=== PATIENT | female | born 1960 | race Caucasian/White ===

== ENCOUNTER 2024-08-05 09:17 | Day surgery (SDC) | payer MEDICARE ==
[~2024-08-05 09:17] MED LIST: Sodium Chloride 0.9% 10 ML Syringe FLUSH PRN; Sodium Chloride 0.9% 10 ML Syringe FLUSH SCH
[2024-08-05] MEDS: Lactated Ringers 1,000 ML IV SCH (09:45)
[2024-08-05] MEDS ORDERED: ePHEDrine 50 MG/ML SDV ONE (10:00)
[2024-08-05] MEDS ORDERED: Midazolam 1 MG/ML 2 ML SDV ONE (10:03)
[2024-08-05] MEDS ORDERED: propofoL 500 MG/50 ML 50 ML ONE (10:03)
[2024-08-05] MEDS ORDERED: fentaNYL 100 MCG/2 ML SDV ONE (10:03)
[2024-08-05] MEDS: Acetaminophen 325 MG Tab PO ONE (10:06)
[2024-08-05] MEDS: Pregabalin 25 MG Cap PO ONE (10:07)
[2024-08-05] MEDS: oxyCODONE ER 10 MG TAB.ER PO ONE (10:07)
[2024-08-05] MEDS ORDERED: Ropivacaine 0.5% 5 MG/ML 30 ML SDV ONE (10:35)
[2024-08-05] MEDS ORDERED: Dexamethasone 4 MG/ML 5 ML MDV ONE (10:35)
[2024-08-05] MEDS ORDERED: ceFAZolin 2 GM Vial ONE (10:35)
[2024-08-05] MEDS ORDERED: Ondansetron 4 MG/2 ML SDV IVPUSH PRN (10:49)
[2024-08-05] MEDS ORDERED: HYDROmorphone 0.5 MG/0.5 ML Syringe IVPUSH PRN (10:49)
[2024-08-05] MEDS ORDERED: fentaNYL 100 MCG/2 ML SDV IVPUSH PRN (10:49)
[2024-08-05] MEDS ORDERED: Chloroprocaine 3% 30 MG/ML 20 ML SDV ONE (11:20)
[2024-08-05] MEDS ORDERED: Phenylephrine 1% 10 MG/ML SDV ONE (11:33)
[2024-08-05] MEDS ORDERED: Lactated Ringers 1,000 ML ONE (11:33)
[2024-08-05] MEDS: Morphine 8 MG, EPINEPHrine 0.3 MG, Cefuroxime 750 MG, Ketorolac 30 MG, Sodium Chloride ... PRN (12:23)
[2024-08-05] MEDS: Tranexamic Acid 1,000 MG/10 ML Vial ONE (12:28)
[2024-08-05] MEDS: VANCOmycin 1 GM SDV ONE (12:28)
[2024-08-05] MEDS: oxyCODONE 5 MG Tab PO PRN (13:57)
== END 2024-08-05 16:01 | disposition home or self-care (01) ==
LOC: JD.SDS 09:17
PROVIDERS: ATTEND Orthopaedic Surgery
DX: M17.12 Unilateral primary osteoarthritis, left knee (principal); I71.40 Abdominal aortic aneurysm, without rupture, unspecified; E78.2 Mixed hyperlipidemia; Z79.899 Other long term (current) drug therapy
CPT/HCPCS: 0055T; 27447; 64447; 64454; 73560; 97116; 97161; A9270; C1713; C1776; J0171; J0690; J0697; J1100; J1885; J2250; J2272; J2371; J2401; J2704; J2795; J3010; J7120; 01402; 64450; J3490

== ENCOUNTER 2024-10-22 14:10 | Emergency (ER) | payer MEDICARE ==
[2024-10-22] MEDS: Diphtheria,Pertussis(Acell),Tetanus Vaccine 0.5 ML Syringe IM ONE (14:57)
== END 2024-10-22 16:00 | disposition home or self-care (01) ==
LOC: JD.ED 14:10
DX: S02.2XXA Fracture of nasal bones, initial encounter for closed fracture (principal); Z23 Encounter for immunization; Z79.899 Other long term (current) drug therapy; W19.XXXA Unspecified fall, initial encounter
CPT/HCPCS: 70486; 70486-26; 90471; 90715; 99283; 99283-25